=== PATIENT | female | born 1960 | race African-American/Black ===

== ENCOUNTER → 2021-01-25 | Outpatient (CLI) | payer OTHER ==
--- NOTE | 2021-01-30 11:28 | PFR/MVV ---
[facility] [place] [address] PULMONARY FUNCTION MVV/REPORT Name: AIDEN FRANK Room #: REG [facility].#: [id number] Admission: 01/25/21 Attend Phys: Austen Mccarty MD Discharge: Date of : 64 Report #: [id number] THIS REPORT FOR: //name// >> SPIROMETRY: (BTPS) Height: 60. in cm Weight: 180 lbs kg Exam Date: 01/25/21 PRE-RX POST-RX PRED BEST %PRED BEST %PRED %CHG FVC LITERS . 2.66 . 2.20 . 83 . 2.19 . 82 . -0 FEV1 LITERS . 1.96 . 1.88 . 96 . 1.94 . 99 . 3 FEV1/FVC % . 74 . 86 . 115 . 89 . 120 . 4 NYK28-23% L/Sec . 2.41 . 2.29 . 95 . 3.27 . 135 . 42 PEF L/SEC . 3.05 . 2.66 . 84 . 4.28 . 140 . 61 FEF50/FIF50 UNITLESS . 5.28 . 5.16 . 98 . 4.84 . 92 . -6 MVV L/Min . 93 . 41 . 44 f 1/Min . . . >> LUNG VOLUMES: (BTPS) PRE-RX POST-RX PRED AVG %PRED AVG %PRED %CHG VC Liters . 2.66 . 2.71 . 102 . . . TLC Liters . 4.11 . 3.81 . 93 . . . RV Liters . 1.50 . 1.10 . 73 . . . RV/TLC % . 37 . 29 . 78 . . . FRC PL Liters . 1.97 . 1.41 . 71 . . . FRC N2 Liters . 1.97 . . . . . ERV Liters . 0.86 . 0.54 . 62 . . . IC Liters . 1.73 . 2.40 . 139 . . . >> DIFFUSION: DLCO ml/Min/mmHg . 21.3 . 13.1 . 61 . . . DL Dameon ml/Min/mmHg . 21.3 . 13.1 . 61 . . . DLCO/VA ml/Min/mmHg . 3.82 . 4.72 . 123 . . . VA Liters . . 2.78 . . . . COMMENTS: COMMENTS: >> RESISTANCE: [facility] [address] [place] [address] PULMONARY FUNCTION MVV/REPORT Name: AIDEN FRANK Room #: REG [facility].#: [id number] Admission: 01/25/21 Attend Phys: Austen Mccarty MD Discharge: Date of : 64 Report #: [id number] PRE-RX PRED AVG %PRED Raw Total cmH20/L/Sec . . 4.88 . Raw Insp cmH20/L/Sec . . 3.85 . Raw Exp cmH20/L/Sec . . 6.34 . Raw cmH20/L/Sec . 2.02 . 3.59 . 177 Gaw L/Sec/cmH20 . 0.473 . 0.279 . 59 sRaw cmH20 Sec . 4.00 . 6.12 . 153 sGaw l/cmH20 Sec . 0.250 . 0.163 . 65 Vtq Liters . . 1.71 . # = OUTSIDE 95% CONFIDENCE INTERVAL CALIBRATION: PRED: 3.00 ACTUAL: EXP 3.01 INSP 3.02 [facility]-OL10-06 [facility]- N-[id number] >> INTERPRETATION/IMPRESSION: DOC #: [id number] Javier Murrell M.D. DATE OF SERVICE: 01/25/2021 PULMONARY FUNCTION STUDIES ATTENDING PHYSICIAN: Dr. Austen Mccarty. SPIROMETRY: FEV1 is 1.88 liters (96%), FVC is 2.20 liters (83% predicted), FEV1/FVC ratio is 86%. There is no significant response to bronchodilator therapy. Total lung capacity is 3.81 liters (93% predicted), vital capacity is 2.71 liters (102%). RV is 1.10 liters (73%). Diffusing capacity 61%. IMPRESSION: Pulmonary function studies are normal. There is no significant response to bronchodilator therapy. Diffusing capacity is moderately decreased. Javier Murrell M.D. [facility] [address] [address] PULMONARY FUNCTION MVV/REPORT Name: AIDEN FRANK Room #: REG [facility]#: [id number] Admission: 01/25/21 Attend Phys: Austen Mccarty MD Discharge: Date of : 64 Report #: [id number] <ELECTRONICALLY SIGNED> By: Javier Murrell MD 01/30/21 1128 Javier Murrell MD /nt
== END ==
LOC: PUL 07:56
PROVIDERS: ATTEND Orthopaedic Surgery
DX: Z20.822 Contact with and (suspected) exposure to COVID-19 (principal); R06.02 Shortness of breath